=== PATIENT | female | born 1950 | race Caucasian/White ===

== ENCOUNTER → 2019-02-08 | Outpatient (CLI) | payer MEDICARE, OTHER ==
[~2019-02-08] MED LIST: ASPI81EC; CHOL10002; FLAXSEED340 GM; Hair, Skin & N1 EACH; Levothyroxine200 MCG; OMEG1CAP30; Tiazac180 MG
== END | disposition home or self-care (01) ==
LOC: LAB 12:45 → LAB SHORT 12:45
DX: N89.8 Other specified noninflammatory disorders of vagina (principal)
CPT/HCPCS: 87070; 87205

== ENCOUNTER → 2019-03-01 | Outpatient (CLI) | payer MEDICARE, OTHER | END | disposition home or self-care (01) | LOC: PLD 07:59 → LAB SHORT 07:59 | DX: N85.00 Endometrial hyperplasia, unspecified (principal) | CPT/HCPCS: 88305 ==

== ENCOUNTER → 2019-12-13 | Outpatient (CLI) | payer MEDICARE, OTHER | END | disposition home or self-care (01) | LOC: LAB SHORT 07:55 → PLD 07:55 | DX: D06.9 Carcinoma in situ of cervix, unspecified (principal) | CPT/HCPCS: 88305 ==

== ENCOUNTER 2020-01-06 08:50 | Day surgery (SDC) | payer MEDICARE, OTHER ==
[~2020-01-06] VITALS: Ht 154.9 cm; Wt 95.6 kg
--- NOTE | 2020-01-06 09:32 | NUR ---
Ambulatory in Day Surgery History, Chart, Medications and Allergies reviewed before start of procedure.Patient confirms NPO status and agrees with scheduled surgery. Patient reports completing Chlorhexadine shower X2 prior to admission to hospital.Lungs clear T/O to Auscultation. Patient States Post-Procedure ride home has been arranged WITH
--- NOTE | 2020-01-06 11:55 | NUR ---
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 A/O. DENIES PAIN AND NAUSEA. MICAELA-PAD CLEAN. NO ISSUES. TO DAY SURGERY FOR CONTINUED STEP-DOWN."
--- NOTE | 2020-01-06 11:56 | NUR ---
"TELEPHONE SERVICE ADVISER | TOLERATING PO FLUIDS"
--- NOTE | 2020-01-06 12:11 | NUR ---
ARRIVED INTO STEP GIVEN JUICE VSS DENIES PAIN
--- NOTE | 2020-01-06 12:27 | NUR ---
up to bathroom at this time plan to get dressed after.
--- NOTE | 2020-01-06 12:45 | NUR ---
Discharge instructions reviewed with patient. Patient verbalizes understanding. Copy given to patient to take home. Patient States Post-Procedure ride home has been arranged. Discharged via wheelchair to private car for ride home.
--- NOTE | 2020-01-09 15:33 | NUR ---
01/09/20 1533 Anna Becker VERIFICATIONS: EDIT CHART.
[2020-01-31] MEDS ORDERED: Cartia Xt180 MG PO (15:03)
== END 2020-01-06 22:48 | disposition home or self-care (01) ==
LOC: ORSCMMR 08:50 → ORD 10:00 → ORSCMMR 22:48
PROVIDERS: Obstetrics & Gynecology
PROC: 0UDB8ZX Extraction of Endometrium, Via Natural or Artificial Opening Endoscopic, Diagnostic (ICD-10-PCS; principal; 2020-01-06 10:00)
DX: N95.0 Postmenopausal bleeding (principal); N84.0 Polyp of corpus uteri; I10 Essential (primary) hypertension; E03.9 Hypothyroidism, unspecified; Z79.899 Other long term (current) drug therapy; E66.01 Morbid (severe) obesity due to excess calories; Z68.39 Body mass index [BMI] 39.0-39.9, adult
CPT/HCPCS: 88305; J1100; J1885; J2250; J2405; J2704; J3010; J7120

== ENCOUNTER → 2021-09-03 | Outpatient (CLI) | payer MEDICARE ==
[~2021-09-03] MED LIST changes: +Cartia Xt180 MG PO
== END | disposition home or self-care (01) ==
LOC: LAB SHORT 07:34
DX: N95.0 Postmenopausal bleeding (principal)
CPT/HCPCS: 88305